=== PATIENT | female | born 1980 | race Caucasian/White ===

== ENCOUNTER 2016-09-14 10:00 | Emergency (ER) | payer OTHER ==
--- NOTE | 2016-09-14 11:16 | ED ---
General Adult HPI - General Chief complaint: Dizziness Stated complaint: Vertigo Time Seen by Provider: 09/14/16 10:30 Source: patient, RN notes reviewed Mode of arrival: ambulatory Limitations: no limitations - History of Present Illness Initial comments: This is a [age] female presents emergency pertinent complaining of vertigo. Patient states she's had vertigo in the past. Patient states last night she started getting spin and felt given he was moving so she eventually laid on went to bed. Patient was hoping that this morning it would go away but she woke up and anytime she moves the room began to spin. This made her very nauseated but she had to continue standing because he had to get her son off to school and she started vomiting at this time. Once the son was off school she decided come the emergency department because she couldn't tell her vertigo wasn 't getting any better. Patient denies any numbness or weakness per patient denies any difficulty walking patient states she's coordinated as she normally is. Patient states she has no new headache. Patient states she has a chronic headache that she's been worked up for by a neurologist and that is nothing new for her. Patient denies any new use fever chills patient denies ear pain patient denies any change in her hearing patient denies any tinnitus. Patient denies any sore throat. Patient denies any chest pain palpitations difficulty breathing or shortness of breath. Denies abdominal pain - Related Data Home Medications Medication Instructions Recorded Confirmed Levothyroxine Sodium [Synthroid] 125 mcg PO DAILY 09/14/16 09/14/16 Previous Rx's Medication Instructions Recorded Meclizine [Antivert] 25 mg PO TID #20 tab 09/14/16 Ondansetron Odt [Zofran Odt] 4 mg PO Q8HR PRN #10 tab 09/14/16 Allergies Allergy/AdvReac Type Severity Reaction Status Date / Time No Known Allergies Allergy Verified 09/14/16 10:12 Review of Systems ROS Statement: Those systems with pertinent positive or pertinent negative responses have been documented in the HPI. ROS Other: All systems not noted in ROS Statement are negative. Past Medical History Past Medical History: Cancer, Thyroid Disorder Additional Past Medical History / Comment(s): thyroid cancer, vertigo History of Any Multi-Drug Resistant Organisms: None Reported Past Surgical History: Cholecystectomy Additional Past Surgical History / Comment(s): thyroidectomy Past Psychological History: No Psychological Hx Reported Smoking Status: Former smoker Past Alcohol Use History: Occasional Past Drug Use History: None Reported General Exam - General Exam Comments Initial Comments: GENERAL: Patient is well-developed and well-nourished. Patient is nontoxic and well- hydrated and is in mild distress. ENT: Neck is soft and supple. No significant lymphadenopathy is noted. Oropharynx is clear. Moist mucous membranes. Neck has full range of motion without eliciting any pain. EYES: The sclera were anicteric and conjunctiva were pink and moist. Extraocular movements were intact and pupils were equal round and reactive to light. Eyelids were unremarkable. PULMONARY: Unlabored respirations. Good breath sounds bilaterally. No audible rales rhonchi or wheezing was noted. CARDIOVASCULAR: There is a regular rate and rhythm without any murmurs gallops or rubs. ABDOMEN: Soft and nontender with normal bowel sounds. No palpable organomegaly was noted. There is no palpable pulsatile mass. SKIN: Skin is clear with no lesions or rashes and otherwise unremarkable. NEUROLOGIC: Patient is alert and oriented x3. Cranial nerves II through XII are grossly intact. Motor and sensory are also intact. Normal speech, volume and content. Symmetrical smile. Finger to nose testing is normal bilaterally. MUSCULOSKELETAL: Normal extremities with adequate strength and full range of motion. No lower extremity swelling or edema. No calf tenderness. LYMPHATICS: No significant lymphadenopathy is noted PSYCHIATRIC: Normal psychiatric evaluation. Limitations: no limitations Course Vital Signs 09/14/16 10:10 Temperature 97.5 F L Pulse Rate 94 Respiratory 20 Rate Blood Pressure 112/71 O2 Sat by Pulse 100 Oximetry Medical Decision Making - Medical Decision Making I went back in the room to evaluate the patient she was able to get up and move around and stated she felt considerably better. Disposition Clinical Impression: Vertigo Disposition: HOME SELF-CARE Condition: Good Instructions: Vertigo (ED) Additional Instructions: If symptoms persist patient should follow-up with ENT or her primary medical care doctor Prescriptions: Meclizine [Antivert] 25 mg PO TID #20 tab Ondansetron Odt [Zofran Odt] 4 mg PO Q8HR PRN #10 tab PRN Reason: Nausea And Vomiting Referrals: Dominick Sandoval DO [Primary Care Provider] - 1-2 days Time of Disposition: 12:00
[2016-09-14] MEDS: DIAZEPAM 5 MG/ML 2 ML SYRINGE IM ONE (11:18)
[2016-09-14] MEDS: MECLIZINE 25 MG TAB PO STA (11:19)
[2016-09-14] MEDS: ONDANSETRON 4 MG ODT STARTER PACK 2 TAB BTL PO STA (12:48)
[2016-09-14 12:52] VITALS: BP 125/56; PULSE 84; RESP 16; TEMP 98.9
== END 2016-09-14 12:51 | disposition home or self-care (01) ==
LOC: EC 10:00
DX: R42 Dizziness and giddiness (principal); R11.2 Nausea with vomiting, unspecified; E07.9 Disorder of thyroid, unspecified; E89.0 Postprocedural hypothyroidism; Z87.891 Personal history of nicotine dependence; Z79.899 Other long term (current) drug therapy; Z85.850 Personal history of malignant neoplasm of thyroid
CPT/HCPCS: 99283; 96372; J3360; S0119

== ENCOUNTER → 2018-05-04 | Outpatient (CLI) | payer OTHER ==
--- NOTE | 2018-05-04 10:50 | US ---
EXAMINATION TYPE: US abdomen comp/pelvis limited DATE OF EXAM: 05/04/2018 COMPARISON: CT abdomen and pelvis April 05, 2016 CLINICAL HISTORY: R17 UNSPECIFIED JAUNDICE,HEMATURIA. Elevated bilirubin, history of cholecystectomy EXAM MEASUREMENTS: Liver Length: 13.3cm Gallbladder Wall: surgically absent CBD: 0.3cm Spleen: 10.6 cm Right Kidney: 10.4 x 4.7 x 4.4cm Left Kidney: 11.1 x 5.4 x 5.7cm Pancreas: visualized portions wnl, limited by overlying midline bowel gas Liver: Slightly heterogeneous Gallbladder: surgically absent CBD: visualized portions wnl, limited by overlying bowel gas Spleen: wnl Right Kidney: wnl Left Kidney: wnl Upper IVC: wnl Abd Aorta: wnl Bladder: wnl Bilateral Jets Seen yes Normal Post Void Residual (normal less than 50ml) N/A Bladder is satisfactorily distended towards end of study without intraluminal mass or wall thickening . IMPRESSION: Heterogeneity of liver without intrahepatic ductal dilatation. No surrounding ascites not ed.
== END ==
LOC: RADUSWWP 09:45
PROVIDERS: ATTEND Family Medicine
DX: R93.2 Abnormal findings on diagnostic imaging of liver and biliary tract (principal)
CPT/HCPCS: 76700; 76857

== ENCOUNTER → 2023-10-25 | Outpatient (CLI) | payer OTHER ==
--- NOTE | 2023-10-26 19:06 | MM ---
Reason for Exam: Screening (asymptomatic). Last mammogram was performed 13 year(s) and 3 month(s) ago. Patient History: Menarche at age 12. First Full-Term at age 25. Premenopausal. Currently using Hormonal Contraceptives, beginning at age 16 for 14 years. Maternal grandmother had breast cancer, age 67. Risk Values: Tammie 5 year model risk: 0.8%. NCI Lifetime model risk: 10.8%. Prior Study Comparison: No prior studies available for comparison. Tissue Density: The breasts are heterogeneously dense, which may obscure small masses. Findings: Analyzed By CAD. Grouped calcifications 12:00 central left breast for which further evaluation is recommended with magnification views. Otherwise, no discrete abnormality is seen. Overall Assessment: Incomplete: need additional imaging evaluation, BI-RAD 0 Management: Special View Mammogram of the left breast. . [facility] will attempt to contact patient to return for supplemental views and ultrasound if indicated. Electronically signed and approved by: Douglas Hunter M.D. Radiologist
== END | disposition home or self-care (01) ==
LOC: RADMAMWWP 08:51
PROVIDERS: ATTEND Family Medicine
DX: Z12.31 Encounter for screening mammogram for malignant neoplasm of breast (principal); Z80.3 Family history of malignant neoplasm of breast
CPT/HCPCS: 77067

== ENCOUNTER → 2023-11-01 | Outpatient (CLI) | payer OTHER ==
--- NOTE | 2023-11-01 09:04 | MM ---
Reason for Exam: Clinical finding. Last screening mammogram was performed less than 1 month ago. Patient History: Menarche at age 12. First Full-Term at age 25. Premenopausal. Currently using Hormonal Contraceptives, beginning at age 16 for 14 years. Maternal grandmother had breast cancer, age 67. Risk Values: Tammie 5 year model risk: 0.8%. NCI Lifetime model risk: 10.8%. Prior Study Comparison: 08/03/2010 Bilateral Screening Mammogram, [facility]. 10/25/2023 Bilateral MG screening mammo w CAD, [facility]. Tissue Density: Left: The breasts are heterogeneously dense, which may obscure small masses. Findings: Analyzed By CAD. The questioned grouped calcifications posterior 12:00 left breast demonstrate heterogeneous morphology and magnification views. Further tissue sampling is recommended. Overall Assessment: Suspicious, BI-RAD 4 Management: Stereotactic Core Biopsy of the left breast. Results were given to the patient verbally at the time of exam. Electronically signed and approved by: Douglas Hunter M.D. Radiologist
== END | disposition home or self-care (01) ==
LOC: RADMAMWWP 08:03
PROVIDERS: ATTEND Family Medicine
DX: R92.332 Mammographic heterogeneous density, left breast (principal); Z80.3 Family history of malignant neoplasm of breast
CPT/HCPCS: 77065; G0279; 77061